=== PATIENT | male | born 1980 | race Caucasian/White ===

== ENCOUNTER 2020-03-04 00:53 | Emergency (ER) | payer MEDICAID, OTHER ==
[~2020-03-04] VITALS: Ht 175.3 cm; Wt 74.8 kg
[2020-03-04 00:53] VITALS: BP 128/52
--- NOTE | 2020-03-04 01:18 | NUR ---
RADIOLOGY AT BEDSIDE
--- NOTE | 2020-03-04 01:51 | NUR ---
Patient discharged to home in stable condition. Written and verbal after care instructions given. Patient verbalizes understanding of instruction. Pt ambulated with steady gait. vss.
== END 2020-03-04 02:11 | disposition home or self-care (01) ==
LOC: ER 00:55
DX: M79.672 Pain in left foot (principal); M79.674 Pain in right toe(s); Z02.89 Encounter for other administrative examinations
CPT/HCPCS: 73620-TC

== ENCOUNTER → 2020-03-04 | Emergency (ER) | payer MEDICAID ==
[~2020-03-04] VITALS: Ht 175.3 cm; Wt 74.8 kg
--- NOTE | 2020-03-04 14:45 | NUR ---
NAOMIE from street with c/o bilateral foot pain of 7/10 x 4 days. pt able to ambulate with steady gait. able to move all extremities. no swelling. no visible trauma such as wound. no discoloration. awaiting for MD voss
[2020-03-04 15:15] VITALS: BP 121/68
== END | disposition home or self-care (01) ==
LOC: ER 14:36
DX: M79.672 Pain in left foot (principal); M79.671 Pain in right foot